=== PATIENT | female | born 1985 | race American Indian/Alaskan Native ===

== ENCOUNTER 2016-12-19 10:57 | Emergency (ER) | payer SELFPAY ==
[2016-12-19 11:16] VITALS: BP 125/69
[2016-12-19 11:42] LABS: Basophils % (Auto) 0.7 % (0.0-1.8); Hematocrit 32.2 % (30.3-42.9); Hemoglobin 10.3 gm/dl (10.1-14.3); Mean Corpuscular HGB Conc 32 % (30-34); Mean Corpuscular Volume 75 fl (79-97); Platelet Count 378 K/mm3 (140-440); Red Cell Distribution Width 17.9 % (13.2-15.2); White Blood Count 8.4 K/mm3 (4.5-11.0)
[2016-12-19 11:56] LABS: Mean Corpuscular Hemoglobin 24 pg (28-32)
[2016-12-19 12:02] LABS: Anion Gap 16 mmol/L; BUN/Creatinine Ratio 8.75; Blood Urea Nitrogen 7 mg/dL (7-17); Calcium 8.6 mg/dL (8.4-10.2); Carbon Dioxide 21 mmol/L (22-30); Chloride 102.3 mmol/L (98-107); Glucose 111 mg/dL (65-100); Sodium 135 mmol/L (137-145)
--- NOTE | 2016-12-19 12:13 | XRay Report ---
Chest 2 views: History: Chest pain. Findings: Normal cardiomediastinal silhouette. Trachea is midline. No consolidation, pneumothorax or pleural effusion. Impression: No acute cardiopulmonary findings.
--- NOTE | 2016-12-20 10:54 | ED Elopement Review ---
ED Pt Elopement review - Results review Lab results: Laboratory Tests 12/19/16 12/19/16 12/19/16 11:32 11:32 14:01 WBC 8.4 RBC 4.30 Hgb 10.3 Hct 32.2 MCV 75 L MCH 24 L MCHC 32 RDW 17.9 H Plt Count 378 Lymph % (Auto) 37.2 H [place] % (Auto) 7.4 H Eos % (Auto) 3.0 Baso % (Auto) 0.7 Lymph # 3.1 [place] # 0.6 Eos # 0.3 Baso # 0.1 Seg Neutrophils % 51.7 Seg Neutrophils # 4.4 Sodium 135 L Potassium 4.0 Chloride 102.3 Carbon Dioxide 21 L Anion Gap 16 BUN 7 Creatinine 0.8 Estimated GFR > 60 BUN/Creatinine Ratio 8.75 Glucose 111 H Calcium 8.6 Troponin T < 0.010 < 0.010 - Call Back decision Pt Call Back Decision: Pt to F/U with PMD
== END 2016-12-20 | disposition left against medical advice (07) ==
LOC: ED 10:57
DX: R07.89 Other chest pain (principal); R42 Dizziness and giddiness; F17.200 Nicotine dependence, unspecified, uncomplicated; Z53.21 Procedure and treatment not carried out due to patient leaving prior to being seen by health care provider
CPT/HCPCS: 36415; 71020; 80048; 84484; 85025; 93005; 93010